=== PATIENT | male | born 1995 | race Caucasian/White ===

== ENCOUNTER 2024-10-21 01:34 | Emergency (ER) | payer BC ==
[2024-10-21] MEDS: Acetaminophen/oxyCODONE 325-5 MG Tab PO ONE (05:34)
[2024-10-21] MEDS: Diphtheria,Pertussis(Acell),Tetanus Vaccine 0.5 ML Syringe IM ONE (05:38)
== END 2024-10-21 09:20 | disposition home or self-care (01) ==
LOC: JD.ED 01:34
DX: S02.2XXA Fracture of nasal bones, initial encounter for closed fracture (principal); S01.81XA Laceration without foreign body of other part of head, initial encounter; K03.81 Cracked tooth; Z79.899 Other long term (current) drug therapy; W51.XXXA Accidental striking against or bumped into by another person, initial encounter
CPT/HCPCS: 12042; 70450; 70486; 72125; 90471; 90715; 96372; 99283; A9270; J0690; 12013; J3490

== ENCOUNTER 2024-11-05 21:42 | Emergency (ER) | payer BC ==
[2024-11-05 22:10] LABS: BASOPHILS ABSOLUTE AUTO 0.0 K/mm3 (0.0-0.2); BASOPHILS PERCENT AUTO 0.2 % (0.0-1.0); EOSINOPHILS ABSOLUTE AUTO 0.1 K/mm3 (0.0-0.4); EOSINOPHILS PERCENT AUTO 0.7 % (0.0-6.0); IMMATURE GRAN ABSOLUTE AUTO 0.02 K/mm3 (0.00-0.05); IMMATURE GRAN PERCENT AUTO 0.2 % (0.0-0.4); LYMPHOCYTES ABSOLUTE AUTO 1.1 K/mm3 (1.0-4.8); LYMPHOCYTES PERCENT AUTO 14.0 % (24.0-44.0); MEAN PLATELET VOLUME 10.6 fl (9.4-12.4); MONOCYTES ABSOLUTE AUTO 0.4 K/mm3 (0.0-0.8); MONOCYTES PERCENT AUTO 5.3 % (0.0-8.0); NEUTROPHILS ABSOLUTE AUTO 6.5 K/mm3 (1.8-7.7); NEUTROPHILS PERCENT AUTO 79.6 % (41.0-71.0); NRBC ABSOLUTE 0.00 (0.00-0.02); NRBC PERCENT 0.0 % (0.0-0.2); PLATELET COUNT,PLT 293 K/mm3 (150-400); RED BLOOD CELL COUNT 5.62 M/mm3 (4.52-5.90); WHITE BLOOD CELL COUNT,WBC 8.13 K/mm3 (3.9-11.3)
[2024-11-05 22:41] LABS: A/G RATIO 1.4 (1-2); ALANINE AMINOTRANSFERASE,ALT 43.0 U/L (16-63); ASPARTATE AMNIOTRANSFERASE,AST 26.0 U/L (15-37); BILIRUBIN TOTAL 1.1 mg/dL (0.2-1.0); BLOOD UREA NITROGEN,BUN 15.0 mg/dL (7-18); CARBON DIOXIDE,CO2 28.0 mEq/L (21-32); CHLORIDE,CL 103.0 mEq/L (98-107); CREATININE 1.1 mg/dL (0.7-1.3); EST CRCL DRUG DOSING (CG) 103.23 mL/min; ESTIMATED GFR 94.0 mL/min (>60); GLUCOSE RANDOM 113.0 mg/dL (70-99); POTASSIUM,K 3.7 mEq/L (3.5-5.1); PROTEIN TOTAL,TP 7.5 g/dl (6.4-8.2); SODIUM,NA 140.0 mEq/L (136-145)
[2024-11-05] MEDS ORDERED: Naloxone 0.4 MG/ML SDV IVPUSH PRN (22:41)
[2024-11-05] MEDS: Ketorolac 30 MG/ML SDV IVPUSH ONE (23:06)
[2024-11-05] MEDS: LORazepam 2 MG/ML SDV IVPUSH ONE (23:07)
[2024-11-05] MEDS: Sodium Chloride 0.9% 10 ML Syringe FLUSH PRN (23:07)
== END 2024-11-06 02:07 | disposition home or self-care (01) ==
LOC: JD.ED 21:42
DX: S43.121A Dislocation of right acromioclavicular joint, 100%-200% displacement, initial encounter (principal); F17.210 Nicotine dependence, cigarettes, uncomplicated; Z79.899 Other long term (current) drug therapy; W10.9XXA Fall (on) (from) unspecified stairs and steps, initial encounter; Y93.89 Activity, other specified
CPT/HCPCS: 36415; 70450; 73030; 80053; 85025; 93005; 96374; 96375; 99284; J1885; J2060; 93010; J1171